=== PATIENT | male | born 1950 | race Caucasian/White ===

== ENCOUNTER → 2016-08-09 | Outpatient (CLI) | payer MEDICARE ==
[2016-08-09 08:07] LABS: CH 32.7; CHCM 33.3; HCT 48.6 % (39.0-53.0); HDW 2.63; HGB 16.1 gm/dL (13.0-17.5); MCH 32.7 pg (25.0-35.0); MCHC 33.1 g/dL (31.0-37.0); MCV 98.7 fL (80.0-100.0); Mean Platelet Volume 6.6; RBC 4.93 m/uL (4.30-5.90); RDW 12.7 % (11.5-15.5); WBC 7.4 k/uL (3.8-10.6)
[2016-08-09 08:24] LABS: Appearance,Urine Clear (Clear); Bacteria,Urine Rare /hpf; Bilirubin,Urine Negative (Negative); Glucose,Urine (UA) Negative (Negative); Ketones,Urine Negative (Negative); Leukocyte Esterase,Urine Trace (Negative); Mucus,Urine Occasional /hpf; Nitrite,Urine Negative (Negative); PH, Urine 5.5 (5.0-8.0); Particle Count 3104; Protein,Urine Negative (Negative); Specific Gravity,Urine 1.019 (1.001-1.035); Squamous Epithelial Cell,Urine <1 /hpf (0-4); UA Billing (MACRO vs. MICRO) MICRO; Urobilinogen,Urine <2.0 mg/dL (<2.0); WBC,Urine 3 /hpf (0-5)
[2016-08-09 10:49] LABS: ALT 36 U/L (21-72); AST 21 U/L (17-59); Alkaline Phosphatase 56 U/L (38-126); Anion Gap 9 mmol/L; Blood Urea Nitrogen 16 mg/dL (9-20); Calcium 9.2 mg/dL (8.4-10.2); Carbon Dioxide 27 mmol/L (22-30); Chloride 106 mmol/L (98-107); Cholesterol 172 mg/dL (<200); Glucose 99 mg/dL (74-99); HDL Cholesterol 65 mg/dL (40-60); Non-African American GFR(MDRD) >60 (>60 ml/min/1.73 sqM); Sodium 142 mmol/L (137-145); Total Bilirubin 0.5 mg/dL (0.2-1.3); Total Protein 6.8 g/dL (6.3-8.2); Triglycerides 92 mg/dL (<150)
[2016-08-09 11:27] LABS: Potassium 4.4 mmol/L (3.5-5.1)
== END | disposition home or self-care (01) ==
LOC: LABWHC1 07:17
PROVIDERS: ATTEND Internal Medicine
DX: I11.9 Hypertensive heart disease without heart failure (principal); E78.2 Mixed hyperlipidemia; K21.0 Gastro-esophageal reflux disease with esophagitis; N40.0 Benign prostatic hyperplasia without lower urinary tract symptoms
CPT/HCPCS: 84439; 80061; 80053; 84443; 85027; 82272; 81001; 36415; G0103

== ENCOUNTER → 2016-11-16 | Outpatient (CLI) | payer MEDICARE | END | disposition home or self-care (01) | LOC: LABWHC1 11:20 | PROVIDERS: ATTEND Internal Medicine | DX: E03.9 Hypothyroidism, unspecified (principal) | CPT/HCPCS: 36415; 84439; 84443 ==

== ENCOUNTER → 2017-03-16 | Outpatient (CLI) | payer MEDICARE ==
[2017-03-16 08:28] LABS: CH 34.1; HCT 47.2 % (39.0-53.0); HDW 2.47; HGB 16.7 gm/dL (13.0-17.5); MCH 34.7 pg (25.0-35.0); MCHC 35.4 g/dL (31.0-37.0); MCV 98.1 fL (80.0-100.0); Mean Platelet Volume 7.1; RBC 4.81 m/uL (4.30-5.90); RDW 13.5 % (11.5-15.5)
--- NOTE | 2017-03-16 08:40 | XR ---
Lumbosacral spine HISTORY: Low back pain, M 55.5 5 views of the lumbosacral spine No comparisons There is a slight spinal curvature. There is no spondylolysis or spondylolisthesis. Multilevel spondy losis is present. Sclerosis present in the posterior elements. Lumbar vertebral bodies show preserved height. Bone mineralization is reduced. Loss of disc height suspected L5-S1, L3-4. IMPRESSION: Osteopenia, degenerative disc disease, facet arthropathy. Lumbar MRI may be of benefit.
[2017-03-16 08:44] LABS: Appearance,Urine Clear (Clear); Bilirubin,Urine Negative (Negative); Glucose,Urine (UA) Negative (Negative); Ketones,Urine Negative (Negative); Leukocyte Esterase,Urine Negative (Negative); Nitrite,Urine Negative (Negative); PH, Urine 5.5 (5.0-8.0); Protein,Urine Negative (Negative); Specific Gravity,Urine 1.017 (1.001-1.035); UA Billing (MACRO vs. MICRO) CHEM; Urobilinogen,Urine <2.0 mg/dL (<2.0)
[2017-03-16 08:47] LABS: ALT 33 U/L (21-72); AST 20 U/L (17-59); Alkaline Phosphatase 58 U/L (38-126); Anion Gap 9 mmol/L; Blood Urea Nitrogen 13 mg/dL (9-20); Calcium 9.4 mg/dL (8.4-10.2); Carbon Dioxide 24 mmol/L (22-30); Chloride 107 mmol/L (98-107); Glucose 96 mg/dL (74-99); Non-African American GFR(MDRD) >60 (>60 ml/min/1.73 sqM); Potassium 4.7 mmol/L (3.5-5.1); Sodium 140 mmol/L (137-145); Total Bilirubin 0.7 mg/dL (0.2-1.3); Total Protein 6.9 g/dL (6.3-8.2)
--- NOTE | 2017-03-16 11:57 | US ---
EXAMINATION TYPE: US abdomen complete DATE OF EXAM: 03/16/2017 COMPARISON: NONE CLINICAL HISTORY: R10.11 ABD PAIN RLQ. EXAM MEASUREMENTS: Liver Length: 15.4 cm Gallbladder Wall: 0.2 cm CBD: 0.3 cm Spleen: 10.9 cm Right Kidney: 12.5 x 6.1 x 6.3 cm Left Kidney: 11.4 x 7.0 x 6.0 cm Pancreas: wnl Liver: homogeneous Gallbladder: No stones seen Evidence for sonographic Nolan's sign: no CBD: wnl Spleen: wnl Right Kidney: No hydronephrosis or masses seen Left Kidney: No hydronephrosis or masses seen Upper IVC: wnl Abd Aorta: Proximal and distal aorta wnl; mid aorta obscured by gas Cortical medullary differentiation is maintained within the kidneys, there is no pathologic calcifica tion bilaterally. There is no ascites. IMPRESSION: There are some limitations the exam. No abnormalities evident.
== END | disposition home or self-care (01) ==
LOC: RADUSWWP 08:05
PROVIDERS: ATTEND Internal Medicine
DX: R10.11 Right upper quadrant pain (principal); R10.31 Right lower quadrant pain; M51.36 Other intervertebral disc degeneration, lumbar region; M46.96 Unspecified inflammatory spondylopathy, lumbar region; M85.88 Other specified disorders of bone density and structure, other site
CPT/HCPCS: 72110; 76700; 80053; 81003; 85027

== ENCOUNTER → 2017-04-03 | Outpatient (CLI) | payer MEDICARE ==
--- NOTE | 2017-04-03 08:24 | MR ---
EXAMINATION TYPE: MR lumbar spine wo con DATE OF EXAM: 04/03/2017 COMPARISON: Abdominal ultrasound dated 03/16/2017. HISTORY: Low back pain for 6 to 8 months radiating into the right flank. TECHNIQUE: Multiplanar, multisequence images of the lumbar spine were acquired. The exam is limited secondary to patient motion. Bone marrow signal is unremarkable other than a T1/T2 hyperintense vertebral body hemangioma at L2. V ertebral bodies maintain normal height and alignment. L1-L2: Normal disc appearance without desiccation. No herniation, protrusion or disc bulging. No ca nal stenosis is present. Foramina are patent bilaterally. L2-L3: Normal disc appearance without desiccation. No herniation, protrusion or disc bulging. No ca nal stenosis is present. Foramina are patent bilaterally. L3-L4: Small broad-based disc bulge is seen creating mild neural foraminal narrowing bilaterally. Lig amentum flavum buckling and facet arthropathy are seen without spinal canal stenosis. L4-L5: Small broad-based disc bulge is seen creating mild neural foraminal narrowing bilaterally. Lig amentum flavum buckling and facet arthropathy are seen without spinal canal stenosis. L5-S1: Disc desiccation is present with a small broad-based disc bulge. However, there is no spinal c anal stenosis or neural foraminal narrowing seen. Perineural cysts are incidentally noted on the right at S1 and S2. On T1 images only there is a quest ionable exophytic right lower pole renal lesion. This may relate to motion artifact as no lesion was seen on the prior ultrasound of 03/16/2017. IMPRESSION: 1. Limited exam due to patient motion. Questionable right inferior pole renal lesion seen only on T1 images may be artifact as no prior lesion was seen on ultrasound of 03/16/2017. If there is clinical co ncern CT abdomen and pelvis could be performed for further evaluation. 2. No focal disc herniation or spinal canal stenosis. 3. Multilevel mild degenerative disc disease from L3 through S1 resulting in mild bilateral neural fo raminal narrowing at L3-L5.
== END | disposition home or self-care (01) ==
LOC: RADMRIMAIN 06:31
PROVIDERS: ATTEND Internal Medicine
DX: M99.73 Connective tissue and disc stenosis of intervertebral foramina of lumbar region (principal); M51.37 Other intervertebral disc degeneration, lumbosacral region
CPT/HCPCS: 72148

== ENCOUNTER → 2017-09-14 | Outpatient (CLI) | payer MEDICARE ==
[2017-09-14 07:54] LABS: HCT 45.3 % (39.0-53.0); HGB 14.8 gm/dL (13.0-17.5); MCH 30.9 pg (25.0-35.0); MCHC 32.6 g/dL (31.0-37.0); MCV 94.9 fL (80.0-100.0); Mean Platelet Volume 6.9; Platelet Count 217 k/uL (150-450); RBC 4.77 m/uL (4.30-5.90); RDW 12.7 % (11.5-15.5); WBC 7.4 k/uL (3.8-10.6)
[2017-09-14 08:15] LABS: Calcium 9.5 mg/dL (8.4-10.2); Potassium 4.5 mmol/L (3.5-5.1); Total Bilirubin 0.7 mg/dL (0.2-1.3); Total Protein 6.8 g/dL (6.3-8.2)
--- NOTE | 2017-09-14 08:35 | XR ---
EXAMINATION TYPE: XR chest 2V DATE OF EXAM: 09/14/2017 COMPARISON: Prior chest x-ray 11/10/2015 HISTORY: R05, I 11.9 TECHNIQUE: Frontal and lateral views of the chest are obtained. FINDINGS: There is no focal air space opacity, pleural effusion, or pneumothorax seen. The cardiac silhouette size is within normal limits. The osseous structures are intact. IMPRESSION: No acute cardiopulmonary process.
== END | disposition home or self-care (01) ==
LOC: LABWHC1 07:07
PROVIDERS: ATTEND Internal Medicine
DX: R05 Cough (principal); I11.9 Hypertensive heart disease without heart failure
CPT/HCPCS: 36415; 71046; 80053; 85027

== ENCOUNTER → 2017-11-08 | Outpatient (CLI) | payer MEDICARE ==
--- NOTE | 2017-11-08 09:15 | CT ---
EXAMINATION TYPE: CT abdomen wo/w con DATE OF EXAM: 11/08/2017 COMPARISON: MRI 04/03/2017 lumbar spine HISTORY: Patient complains of bilateral upper quadrant pain. CT DLP: 2045.3 mGycm Automated exposure control for dose reduction was used. TECHNIQUE: Helical acquisition of images was performed from the lung bases through the top of iliac crest to include entire abdomen. CONTRAST: Performed with Oral Contrast and without and with IV Contrast, patient injected with 100 mL of Isovue 300. FINDINGS: LUNG BASES: Linear changes at both lung bases are noted. Correlate for atelectasis. LIVER/GB: No significant abnormality is appreciated. PANCREAS: No significant abnormality is seen. SPLEEN: No significant abnormality is seen. ADRENALS: No significant abnormality is seen. KIDNEYS: There are 2 hypodense lesions involving the right kidney both measuring approximately 1 cm a nd measuring approximately 11 Hounsfield units compatible simple cysts. No hydronephrosis or nephroli thiasis. BOWEL: Bowel gas pattern nonspecific. No diagnostic evidence of obstruction as visualized. Gastric w all appears slightly thickened but this is felt to be most likely related to incomplete distention. LYMPH NODES: No significant abnormality is seen. Subcentimeter lymph node is seen in the peripancrea tic region anterior to the IVC. OSSEOUS STRUCTURES: Hypertrophic and degenerative change of the spine noted. FREE AIR: No free air is visualized. OTHER: Aorta of normal caliber. IMPRESSION: 1. There are two right-sided renal lesions are seen measuring less than 15 Hounsfield units compatibl e with simple cyst. 2. Correlate for constipation with retained fecal debris throughout the colon. Mild thickening of the gastric wall is felt to be most likely related to incomplete distention rather than gastritis correl ate clinically.
== END | disposition home or self-care (01) ==
LOC: RADCTMAIN 07:56
PROVIDERS: ATTEND Internal Medicine
DX: K56.41 Fecal impaction (principal); N28.9 Disorder of kidney and ureter, unspecified; R19.09 Other intra-abdominal and pelvic swelling, mass and lump
CPT/HCPCS: 82565; 84520; 74170; 36415; Q9967

== ENCOUNTER → 2017-12-11 | Outpatient (CLI) | payer MEDICARE ==
[2017-12-11 07:51] LABS: T4, Free (Free Thyroxine) 0.81 ng/dL (0.78-2.19)
[2017-12-11 11:52] LABS: Prostate Specific Antigen 2.97 ng/mL (0.00-4.00)
== END | disposition home or self-care (01) ==
LOC: LABWHC1 06:46
PROVIDERS: ATTEND Internal Medicine
DX: E78.2 Mixed hyperlipidemia (principal); E03.9 Hypothyroidism, unspecified; N40.0 Benign prostatic hyperplasia without lower urinary tract symptoms
CPT/HCPCS: 36415; 80061; 84153; 84439; 84443

== ENCOUNTER → 2018-02-28 | Outpatient (CLI) | payer MEDICARE ==
[2018-02-28 07:44] LABS: HCT 47.6 % (39.0-53.0); HGB 15.3 gm/dL (13.0-17.5); MCH 31.8 pg (25.0-35.0); MCHC 32.2 g/dL (31.0-37.0); MCV 98.7 fL (80.0-100.0); Mean Platelet Volume 6.4; Platelet Count 239 k/uL (150-450); RBC 4.82 m/uL (4.30-5.90); RDW 12.8 % (11.5-15.5); WBC 7.8 k/uL (3.8-10.6)
[2018-02-28 07:55] LABS: Albumin 3.8 g/dL (3.5-5.0); Calcium 9.3 mg/dL (8.4-10.2); Potassium 4.5 mmol/L (3.5-5.1); Total Bilirubin 0.9 mg/dL (0.2-1.3); Total Protein 6.6 g/dL (6.3-8.2)
[2018-02-28 08:06] LABS: T4, Free (Free Thyroxine) 0.75 ng/dL (0.78-2.19)
== END | disposition home or self-care (01) ==
LOC: LABWHC1 07:03
PROVIDERS: ATTEND Internal Medicine
DX: Z00.00 Encounter for general adult medical examination without abnormal findings (principal); E11.9 Type 2 diabetes mellitus without complications; E03.9 Hypothyroidism, unspecified; K21.0 Gastro-esophageal reflux disease with esophagitis
CPT/HCPCS: 36415; 80053; 80061; 82272; 84439; 84443; 85027

== ENCOUNTER 2018-08-28 09:19 | Emergency (ER) | payer MEDICARE ==
[2018-08-28 09:25] VITALS: RESP 18
[2018-08-28] MEDS ORDERED: SODIUM CHLORIDE 0.9% 1,000 ML IV STA ×2 (09:42)
--- NOTE | 2018-08-28 09:47 | ED ---
Weakness HPI <Mich Mckinley - Last Filed: 08/28/18 11:19> - General Source: patient, RN notes reviewed, old records reviewed Mode of arrival: ambulatory Limitations: no limitations <Maribel Welch - Last Filed: 08/28/18 11:30> - General Chief complaint: Weakness Stated complaint: WEAKNESS RT ARM AND LEG Time Seen by Provider: 08/28/18 09:30 - History of Present Illness Initial comments: Patient is a 68-year-old male who presents emergency room today with right- sided arm and leg weakness.Patient reports symptoms started 3-4 days ago. Patient reports that he noticed yesterday while trying to mash potatoes that his right hand independent distributor strength was decreased compared to his left. Patient states that he has a history of hypertension. Patient reports he also takes daily aspirin. (Maribel Welch) - Related Data Home Medications Medication Instructions Recorded Confirmed Levothyroxine Sodium [Synthroid] 25 mcg PO QAM 11/10/15 08/28/18 Aspirin EC [Ecotrin Low Dose] 81 mg PO DAILY 08/28/18 08/28/18 Atenolol 25 mg PO DAILY 08/28/18 08/28/18 Enalapril [Vasotec] 10 mg PO BID 08/28/18 08/28/18 Allergies Allergy/AdvReac Type Severity Reaction Status Date / Time No Known Allergies Allergy Verified 08/28/18 09:45 Review of Systems ROS Other: All systems not noted in ROS Statement are negative. <Mich Mckinley - Last Filed: 08/28/18 11:19> ROS Other: All systems not noted in ROS Statement are negative. <Maribel Welch - Last Filed: 08/28/18 11:30> ROS Statement: Those systems with pertinent positive or pertinent negative responses have been documented in the HPI. Past Medical History Past Medical History: Hypertension, Thyroid Disorder History of Any Multi-Drug Resistant Organisms: None Reported Past Surgical History: No Surgical Hx Reported Past Psychological History: No Psychological Hx Reported Smoking Status: Current some day smoker Past Alcohol Use History: Daily Past Drug Use History: None Reported <Maribel Welch - Last Filed: 08/28/18 11:30> General Exam <Mich Mckinley - Last Filed: 08/28/18 11:19> Limitations: no limitations General appearance: alert, in no apparent distress Head exam: Present: atraumatic, normocephalic, normal inspection Eye exam: Present: normal appearance, PERRL, EOMI. Absent: scleral icterus, conjunctival injection, periorbital swelling ENT exam: Present: normal exam, mucous membranes moist Neck exam: Present: normal inspection. Absent: tenderness, meningismus, lymphadenopathy Respiratory exam: Present: normal lung sounds bilaterally Cardiovascular Exam: Present: regular rate, normal rhythm, normal heart sounds. Absent: systolic murmur, diastolic murmur, rubs, gallop, clicks GI/Abdominal exam: Present: soft, normal bowel sounds. Absent: distended, tenderness, guarding, rebound, rigid Extremities exam: Present: normal inspection, full ROM, normal capillary refill. Absent: tenderness, pedal edema, joint swelling, calf tenderness Back exam: Present: normal inspection Neurological exam: Present: alert, oriented X3, CN II-XII intact, normal gait Expanded Patient oriented to: Present: person, place, time Speech: Present: fluid speech Cranial nerves: EOM's Intact: Normal, Facial Sensation: Normal Cerebellar function: Finger to Nose: Normal Upper motor neuron: Pronator Drift: Normal Sensory exam: Upper Extremity Light Touch: Normal, UE 2 Point Discrimination: Normal Motor strength exam: RUE: 4, LUE: 5, RLE: 4, LLE: 5 Eye Response: (4) open spontaneously Motor Response: (6) obeys commands Verbal Response: (5) oriented [place] Total: 15 Psychiatric exam: Present: normal affect, normal mood Skin exam: Present: warm, dry, intact, normal color. Absent: rash <Maribel Welch - Last Filed: 08/28/18 11:30> - General Exam Comments Initial Comments: Patient is a 68-year-old male. Alert and oriented 3. Patient appears in no significant distress. (Maribel Welch) Course <Mich Mckinley - Last Filed: 08/28/18 11:19> <Maribel Welch - Last Filed: 08/28/18 11:30> Vital Signs 08/28/18 08/28/18 09:19 11:06 Temperature 98.5 F Pulse Rate 60 58 L Respiratory 18 18 Rate Blood Pressure 177/112 154/90 O2 Sat by Pulse 98 97 Oximetry - Reevaluation(s) Reevaluation #1: 08/28/18 11:20 PERRY supervision: I proceeded [id number] evaluation patient did discuss the complaints of findings with him and his . Patient has had some articulation problems with speech or last several days along with right upper extremity difficulties he is dominant right-handed. He also states over last month or month and a half he's had some difficulty with moving his right foot and leg which he normally does. No trauma reported. Lab work was reviewed and is essentially within normal limits CAT scan however does show evidence of vasogenic edema surrounding 2 masslike left frontal lesion suspicious for underlying intra-axial neoplasms. I did discuss this with the patient and his . After discussion transferred to [facility] is to be accomplished. I did discuss the case with Dr. Ibrahim in the emergency department at [facility] was agreed to set the patient transfer. Patient is awake alert oriented 3 he does demonstrate the above deficits. He will receive IV Decadron to be transferred with head of the bed up at 30. (Mich Mckinley) EKG Findings - EKG Comments: EKG Findings:: EKG performed at 950 shows sinus bradycardia, otherwise normal EKG. Crit 57 bpm. Pulse 1-60 ms. QS ration 80 ms QT QTc is 408/397 ms. <Maribel Welch - Last Filed: 08/28/18 11:30> Medical Decision Making - Lab Data Result diagrams: 08/28/18 09:54 08/28/18 09:54 <Mich Mckinley - Last Filed: 08/28/18 11:19> - Lab Data Result diagrams: 08/28/18 09:54 08/28/18 09:54 - Radiology Data Radiology results: report reviewed <Maribel Welch - Last Filed: 08/28/18 11:30> - Medical Decision Making Patient is a 68-year-old male presents return today with complaints of right- sided hand and leg weakness been progressive for the past 3 days. He has no other neurological deficits. There is notable decrease in independent distributor strength with the right hand compared to the left. He is [id number]. CT of the brain is completed and stroke workup was completed. The CT does show evidence of edema masslike effect over the left parietal lobe. Patient case also with Dr. Mckinley. Lab work was otherwise unremarkable. EKG shows no significant changes. Patient was informed of the possibility of neoplasm cause the symptoms and CT findings. Recommended transfer to tertiary care facility. Discussed with Dr. Mckinley who discussed the case with Сергей Cavanaugh. (Maribel Welch) - Lab Data Lab Results 08/28/18 08/28/18 08/28/18 Range/Units 09:54 09:54 09:54 WBC 6.9 (3.8-10.6) k/uL RBC 4.92 (4.30-5.90) m/uL Hgb 15.9 (13.0-17.5) gm/dL Hct 47.7 (39.0-53.0) % MCV 97.0 (80.0-100.0) fL MCH 32.4 (25.0-35.0) pg MCHC 33.4 (31.0-37.0) g/dL RDW 12.6 (11.5-15.5) % Plt Count 254 (150-450) k/uL Neutrophils % 67 % Lymphocytes % 22 % Monocytes % 6 % Eosinophils % 3 % Basophils % 1 % Neutrophils # 4.6 (1.3-7.7) k/uL Lymphocytes # 1.5 (1.0-4.8) k/uL Monocytes # 0.4 (0-1.0) k/uL Eosinophils # 0.2 (0-0.7) k/uL Basophils # 0.1 (0-0.2) k/uL PT (9.0-12.0) sec INR (<1.2) APTT (22.0-30.0) sec Sodium 139 (137-145) mmol/L Potassium 4.5 (3.5-5.1) mmol/L Chloride 107 (98-107) mmol/L Carbon Dioxide 23 (22-30) mmol/L Anion Gap 9 mmol/L BUN 17 (9-20) mg/dL Creatinine 1.04 (0.66-1.25) mg/dL Est GFR (CKD-EPI)AfAm 86 (>60 ml/min/1.73 sqM) Est GFR (CKD-EPI)NonAf 74 (>60 ml/min/1.73 sqM) Glucose 100 H (74-99) mg/dL Plasma Lactic Acid Adarsh (0.7-2.0) mmol/L Calcium 9.8 (8.4-10.2) mg/dL Magnesium 1.9 (1.6-2.3) mg/dL Total Bilirubin 1.0 (0.2-1.3) mg/dL AST 23 (17-59) U/L ALT 32 (21-72) U/L Alkaline Phosphatase 61 (38-126) U/L Total Creatine Kinase 87 (55-170) U/L CK-MB (CK-2) 1.1 (0.0-2.4) ng/mL CK-MB (CK-2) Rel Index 1.3 Troponin I <0.012 (0.000-0.034) ng/mL Total Protein 7.0 (6.3-8.2) g/dL Albumin 4.1 (3.5-5.0) g/dL 08/28/18 08/28/18 Range/Units 09:54 09:54 WBC (3.8-10.6) k/uL RBC (4.30-5.90) m/uL Hgb (13.0-17.5) gm/dL Hct (39.0-53.0) % MCV (80.0-100.0) fL MCH (25.0-35.0) pg MCHC (31.0-37.0) g/dL RDW (11.5-15.5) % Plt Count (150-450) k/uL Neutrophils % % Lymphocytes % % Monocytes % % Eosinophils % % Basophils % % Neutrophils # (1.3-7.7) k/uL Lymphocytes # (1.0-4.8) k/uL Monocytes # (0-1.0) k/uL Eosinophils # (0-0.7) k/uL Basophils # (0-0.2) k/uL PT 11.1 (9.0-12.0) sec INR 1.0 (<1.2) APTT 26.4 (22.0-30.0) sec Sodium (137-145) mmol/L Potassium (3.5-5.1) mmol/L Chloride (98-107) mmol/L Carbon Dioxide (22-30) mmol/L Anion Gap mmol/L BUN (9-20) mg/dL Creatinine (0.66-1.25) mg/dL Est GFR (CKD-EPI)AfAm (>60 ml/min/1.73 sqM) Est GFR (CKD-EPI)NonAf (>60 ml/min/1.73 sqM) Glucose (74-99) mg/dL Plasma Lactic Acid Adarsh 0.9 (0.7-2.0) mmol/L Calcium (8.4-10.2) mg/dL Magnesium (1.6-2.3) mg/dL Total Bilirubin (0.2-1.3) mg/dL AST (17-59) U/L ALT (21-72) U/L Alkaline Phosphatase (38-126) U/L Total Creatine Kinase (55-170) U/L CK-MB (CK-2) (0.0-2.4) ng/mL CK-MB (CK-2) Rel Index Troponin I (0.000-0.034) ng/mL Total Protein (6.3-8.2) g/dL Albumin (3.5-5.0) g/dL - Radiology Data Vasogenic edema surrounding to masslike left frontal lesion suspicious for underlying intra-axial neoplasms creating a focal left rightward midline shift of 5 mm. Impression of the corpus callosum and impression upon the left lateral ventricle without concurrent obstruction. CT brain with contrast is recommended for more definitive characterization noted. Chest x-rays negative for any acute process. (Maribel Welch) Disposition Is patient prescribed a controlled substance at d/c from ED?: No - Out of Hospital Transfer - Req. Specs Out of Hospital Transfer - Requested Specifics: Other Emergency Center <Mich Mckinley - Last Filed: 08/28/18 11:19> Is patient prescribed a controlled substance at d/c from ED?: No Time of Disposition: 11:30 <Maribel Welch - Last Filed: 08/28/18 11:30> Clinical Impression: Neoplasm of brain causing mass effect on adjacent structures Disposition: OTHER INSTITUTION NOT DEFINED Condition: Serious Referrals: Trent Haque MD [Primary Care Provider] - 1-2 days
[2018-08-28 10:14] LABS: Basophils # (A) 0.1 k/uL (0-0.2); Basophils % (A) 1 %; Eosinophils # (A) 0.2 k/uL (0-0.7); Eosinophils % (A) 3 %; HCT 47.7 % (39.0-53.0); HGB 15.9 gm/dL (13.0-17.5); Lymphocytes # (A) 1.5 k/uL (1.0-4.8); Lymphocytes % (A) 22 %; MCH 32.4 pg (25.0-35.0); MCHC 33.4 g/dL (31.0-37.0); Mean Platelet Volume 6.5; Monocytes # (A) 0.4 k/uL (0-1.0); Monocytes % (A) 6 %; Neutrophils # (A) 4.6 k/uL (1.3-7.7); Neutrophils % (A) 67 %; Platelet Count 254 k/uL (150-450); RBC 4.92 m/uL (4.30-5.90); RDW 12.6 % (11.5-15.5); WBC 6.9 k/uL (3.8-10.6)
[2018-08-28 10:23] LABS: Partial Thromboplastin Time 26.4 sec (22.0-30.0); Prothrombin Time 11.1 sec (9.0-12.0)
--- NOTE | 2018-08-28 10:24 | CT ---
EXAMINATION TYPE: CT brain wo con DATE OF EXAM: 08/28/2018 COMPARISON: None HISTORY: Rt arm numbness and weakness CT DLP: 1086.4 mGycm Automated exposure control for dose reduction was used. FINDINGS: There is is a mucosal retention cysts of the right maxillary sinus measuring 2.2 x 1.6 cm. There is m ild rightward nasal septal deviation and scant mucosal thickening of the left maxillary sinus. There is moderate mucosal thickening of the ethmoid sinuses. Retained secretions or a small Thornwaldt cyst is seen in the posterior nasopharynx. The sphenoid sinuses and frontal sinuses as well as the mastoi d air cells are well aerated. Calvarium appears intact. Minimal atherosclerosis is seen of the intrac ranial vasculature. There is masslike edema in the posterior left frontal lobe at 2 locations the first measuring 1.2 x 1 .1 cm and a second measuring approximately 2.5 x 2.7 cm with surrounding edema creating focal 5 mm le ft to right midline shift/subfalcine herniation. Findings appear as vasogenic edema with suspicion fo r underlying masses. On coronal series 202 image 41 there is mass effect upon the left lateral ventri elliot and corpus callosum. No acute intracranial hemorrhage is seen. Orbits appear symmetric and unremarkable. Calvarium appears intact. IMPRESSION: VASOGENIC EDEMA SURROUNDING 2 MASSLIKE LEFT FRONTAL LESIONS SUSPICIOUS FOR UNDERLYING INTRA-AXIAL ANTONIO PLASMS CREATING FOCAL LEFT RIGHTWARD MIDLINE SHIFT OF 5 MM, IMPRESSION ON THE CORPUS CALLOSUM, AND IM PRESSION UPON THE LEFT LATERAL VENTRICLE WITHOUT CURRENT OBSTRUCTION. CT BRAIN WITH CONTRAST IS RECOM MENDED FOR MORE DEFINITIVE CHARACTERIZATION.
[2018-08-28 10:28] LABS: Albumin 4.1 g/dL (3.5-5.0); Calcium 9.8 mg/dL (8.4-10.2); Magnesium 1.9 mg/dL (1.6-2.3); Potassium 4.5 mmol/L (3.5-5.1)
[2018-08-28 10:40] LABS: Creatine Kinase 87 U/L (55-170)
[2018-08-28 10:53] LABS: Creatine Kinase MB 1.1 ng/mL (0.0-2.4); Troponin I <0.012 ng/mL (0.000-0.034)
--- NOTE | 2018-08-28 10:58 | XR ---
EXAMINATION TYPE: XR chest 2V DATE OF EXAM: 08/28/2018 COMPARISON: NONE TECHNIQUE: PA and lateral views submitted. HISTORY: Right-sided weakness FINDINGS: The lungs are clear and there is no pneumothorax, pleural effusion, or focal pneumonia. Biapical pl eural thickening. No overt failure. Hypertrophic and degenerative change of the spine. Mild hyperinfl ation. IMPRESSION: 1. No acute process.
[2018-08-28] MEDS ORDERED: DEXAMETHASONE SOD PHOSPHATE 10 MG/ML 1 ML VIAL IV STA (11:19)
[2018-08-28 12:01] VITALS: BP 149/87; PULSE 75; TEMP 98
== END 2018-08-28 12:00 | disposition short-term general hospital (02) ==
LOC: EC 09:19
DX: D49.6 Neoplasm of unspecified behavior of brain (principal); I10 Essential (primary) hypertension; E07.9 Disorder of thyroid, unspecified; F17.200 Nicotine dependence, unspecified, uncomplicated; Z79.82 Long term (current) use of aspirin; Z79.890 Hormone replacement therapy; Z79.899 Other long term (current) drug therapy
CPT/HCPCS: 36415; 93005; 80053; 82550; 82553; 83605; 83735; 84484; 85025; 85610; 85730; 71046; 70450; 99285; 96374; 96361 ×2; J1100

== ENCOUNTER → 2018-10-15 | Outpatient (CLI) | payer MEDICARE ==
--- NOTE | 2018-10-15 22:39 | MR ---
EXAMINATION TYPE: MR brain wo/w con DATE OF EXAM: 10/15/2018 COMPARISON: CT brain August 28, 2018 HISTORY: Follow up to brain tumor resection 09-04-18, glioblastoma TECHNIQUE: Multiplanar, multisequence images of the brain and brainstem is performed without and with IV contras t, utilizing 10 mL intravenous Gadavist . FINDINGS: Diffusion weighted images demonstrate no evidence of a recent infarct or other diffusion ab normality. There is ventricular and sulcal prominence consistent with mild age-related cerebral atro phy. There is extra-axial CSF prominence over the left side measuring up to 15 mm in thickness of T1 hypointensity and T2 hyperintensity favoring postsurgical hygroma as there is artifact from left-side d high frontal parietal craniotomy noted. The craniocervical junction appears within normal limits. Post contrast images demonstrate persisten t irregular rim-enhancing posterior left frontal mass extending superiorly to the top of the brain pa renchyma measuring 3.6 cm transversely by 3.2 cm AP diameter axial image 23 by roughly 5.1 cm cranioc audal diameter on image 21. This lesion shows surrounding T2 hyperintensity. There is some local mass effect with midline shift and there are axial image 21. Some surgical resection is noted superiorly near the craniotomy changes. Area is strongly suspicious for residual neoplasm. Pre-MRI scans not lin ilable for direct comparison at this institution. No new enhancing masses are present. The dural venous sinuses appear patent. The visualized sinuses are clear and the globes are intact. 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 Correl ation with presurgical MRI advised to assess interval change since surgery.
== END | disposition home or self-care (01) ==
LOC: RADMRIMAIN 12:13
PROVIDERS: ATTEND Nurse Practitioner Family
DX: C71.9 Malignant neoplasm of brain, unspecified (principal); Z98.890 Other specified postprocedural states
CPT/HCPCS: 70553; A9585

== ENCOUNTER 2018-10-22 11:02 | Emergency (ER) | payer MEDICARE ==
[2018-10-22] MEDS ORDERED: SODIUM CHLORIDE 0.9% 500 ML 500 ML IV STA (11:07)
[2018-10-22] MEDS ORDERED: SODIUM CHLORIDE 0.9% 1,000 ML IV STA (11:07)
[2018-10-22] MEDS ORDERED: levETIRAcetam IV 1,000 MG in SALINE 1 100ML.BAG IVPB STA (11:07)
[2018-10-22 11:13] VITALS: TEMP 98.5
[2018-10-22 11:30] LABS: Glucose,Whole Blood 96 mg/dL (75-99)
--- NOTE | 2018-10-22 11:45 | ED ---
General Adult HPI - General Chief complaint: Recheck/Abnormal Lab/Rx Stated complaint: Seizure Time Seen by Provider: 10/22/18 11:02 Source: patient, family, EMS, RN notes reviewed Mode of arrival: EMS Limitations: no limitations - History of Present Illness Initial comments: This is a 68-year-old male with a history of surgery in August of this year for a glioblastoma who has been receiving chemotherapy and radiation therapy who was doing his usual routine this morning when he started developing right-sided tremors of the upper or lower extremities. He did have surgery for the glioblastoma on September 04. 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 He also apparently had an MRI done this past week. He was scheduled for radiation therapy today. No recent change in medications no reports of fevers chills nausea vomiting sweats. The patient was brought in by paramedics he was given 2.5 mg of first set which did temporarily stop the tremor activity patient glucose at the time was 90. - Related Data Home Medications Medication Instructions Recorded Confirmed Levothyroxine Sodium [Synthroid] 25 mcg PO DAILY@0800 11/10/15 10/22/18 Carvedilol [Coreg] 6.25 mg PO BID@0800,1900 10/22/18 10/22/18 Dexamethasone [Hexadrol] 4 mg PO BID@0800,1400 10/22/18 10/22/18 Lacosamide [Vimpat] 200 mg PO BID 10/22/18 10/22/18 OXcarbazepine [Trileptal] 300 - 600 mg PO BID 10/22/18 10/22/18 Pantoprazole Sodium [Protonix] 40 mg PO DAILY@0800 10/22/18 10/22/18 Polyethylene Glycol 3350 [Miralax] 17 gm PO DAILY PRN 10/22/18 10/22/18 Sulfamethoxazole/Trimethoprim 1 tab PO MOWEFR 10/22/18 10/22/18 [Bactrim DS 800-160 mg] levETIRAcetam [Keppra] 1,000 mg PO BID@0800,2000 10/22/18 10/22/18 Allergies Allergy/AdvReac Type Severity Reaction Status Date / Time No Known Allergies Allergy Verified 10/22/18 12:31 Review of Systems ROS Statement: Those systems with pertinent positive or pertinent negative responses have been documented in the HPI. ROS Other: All systems not noted in ROS Statement are negative. Past Medical History Past Medical History: Hypertension, Thyroid Disorder Additional Past Medical History / Comment(s): brain tumor History of Any Multi-Drug Resistant Organisms: None Reported Past Surgical History: No Surgical Hx Reported Additional Past Surgical History / Comment(s): brain tumor removal Past Psychological History: No Psychological Hx Reported Smoking Status: Current some day smoker Past Alcohol Use History: Daily Past Drug Use History: None Reported General Exam - General Exam Comments Initial Comments: This a well-developed well-nourished awake male who does demonstrate slightly slurred speech also is actively demonstrating tremors to the right upper lower extremity. Limitations: no limitations General appearance: alert, in distress ENT exam: Present: mucous membranes dry Neck exam: Present: normal inspection, full ROM, other (No stridor JVD or bruits). Absent: tenderness, meningismus, lymphadenopathy Extremities exam: Present: normal capillary refill, other (Right hemiplegia with tremors noted to the right upper and lower extremities). Absent: normal in spection, full ROM, tenderness Neurological exam: Present: alert, oriented X3, CN II-XII intact, motor sensory deficit (As noted above) Psychiatric exam: Present: normal affect, normal mood Skin exam: Present: warm, dry, intact, normal color. Absent: rash Course Vital Signs 10/22/18 10/22/18 10/22/18 11:06 11:21 12:33 Temperature 98.5 F Pulse Rate 89 84 67 Respiratory 28 H 18 16 Rate Blood Pressure 101/35 106/75 106/75 O2 Sat by Pulse 97 99 Oximetry - Reevaluation(s) Reevaluation #1: 10/22/18 11:46 Patient did respond to 1 mg of Ativan. The tremors have ceased. Reevaluation #2: 10/22/18 11:48 nuclear monitoring technician: nuclear monitoring technician ordered to rule out dysrhythmia due to the patient's presentation with apparent seizure-like activity. Heart rate was 80 sinus rhythm no atrial or ventricular ectopy noted. Reevaluation #3: 10/22/18 13:01 Reevaluation patient again reveals he is awake alert somewhat lethargic likely secondary to the benzodiazepine he received. No further episodes of tremor/seizure activity noted. EKG Findings - EKG Results: EKG: interpreted by SHEILA, sinus rhythm (Neuro sinus rhythm a 77 appear interval 176 QRS duration 80 QT since QTC 370/14 possible left atrial enlargement no acute ST-T wave changes) Medical Decision Making - Medical Decision Making I did discuss the findings with the patient and his . I also discussed the case with Dr. Garcia from radiation oncology also with Dr. Bey from radiology. Patient is stable at this time he will be transferred to [facility] for evaluation of the above. The patient was given 1 g of Keppra IV in addition to the medication previously mentioned. Patient is awake alert oriented 3 his vital signs are stable at this time he was given 10 mg of Decadron IV push. He will be transferred by EMS. I did discuss the case with Dr. Rainey who has agreed to set the patient transfer. - Lab Data Result diagrams: 10/22/18 11:19 10/22/18 11:19 Lab Results 10/22/18 10/22/18 10/22/18 Range/Units 11:19 11:19 11:19 WBC 10.1 (3.8-10.6) k/uL RBC 4.37 (4.30-5.90) m/uL Hgb 14.2 (13.0-17.5) gm/dL Hct 41.7 (39.0-53.0) % MCV 95.5 (80.0-100.0) fL MCH 32.6 (25.0-35.0) pg MCHC 34.1 (31.0-37.0) g/dL RDW 13.8 (11.5-15.5) % Plt Count 176 (150-450) k/uL Neutrophils % 70 % Lymphocytes % 22 % Monocytes % 6 % Eosinophils % 1 % Basophils % 0 % Neutrophils # 7.0 (1.3-7.7) k/uL Lymphocytes # 2.2 (1.0-4.8) k/uL Monocytes # 0.6 (0-1.0) k/uL Eosinophils # 0.1 (0-0.7) k/uL Basophils # 0.0 (0-0.2) k/uL Sodium 133 L (137-145) mmol/L Potassium 4.4 (3.5-5.1) mmol/L Chloride 102 (98-107) mmol/L Carbon Dioxide 25 (22-30) mmol/L Anion Gap 6 mmol/L BUN 23 H (9-20) mg/dL Creatinine 0.79 (0.66-1.25) mg/dL Est GFR (CKD-EPI)AfAm >90 (>60 ml/min/1.73 sqM) Est GFR (CKD-EPI)NonAf >90 (>60 ml/min/1.73 sqM) Glucose 79 (74-99) mg/dL POC Glucose (mg/dL) (75-99) mg/dL POC Glu Assistant ID Calcium 9.0 (8.4-10.2) mg/dL Magnesium 2.0 (1.6-2.3) mg/dL Total Bilirubin 0.6 (0.2-1.3) mg/dL AST 27 (17-59) U/L ALT 52 (21-72) U/L Alkaline Phosphatase 58 (38-126) U/L Total Creatine Kinase 39 L (55-170) U/L CK-MB (CK-2) 2.2 (0.0-2.4) ng/mL CK-MB (CK-2) Rel Index 5.6 Total Protein 5.6 L (6.3-8.2) g/dL Albumin 3.3 L (3.5-5.0) g/dL 10/22/18 Range/Units 11:28 WBC (3.8-10.6) k/uL RBC (4.30-5.90) m/uL Hgb (13.0-17.5) gm/dL Hct (39.0-53.0) % MCV (80.0-100.0) fL MCH (25.0-35.0) pg MCHC (31.0-37.0) g/dL RDW (11.5-15.5) % Plt Count (150-450) k/uL Neutrophils % % Lymphocytes % % Monocytes % % Eosinophils % % Basophils % % Neutrophils # (1.3-7.7) k/uL Lymphocytes # (1.0-4.8) k/uL Monocytes # (0-1.0) k/uL Eosinophils # (0-0.7) k/uL Basophils # (0-0.2) k/uL Sodium (137-145) mmol/L Potassium (3.5-5.1) mmol/L Chloride (98-107) mmol/L Carbon Dioxide (22-30) mmol/L Anion Gap mmol/L BUN (9-20) mg/dL Creatinine (0.66-1.25) mg/dL Est GFR (CKD-EPI)AfAm (>60 ml/min/1.73 sqM) Est GFR (CKD-EPI)NonAf (>60 ml/min/1.73 sqM) Glucose (74-99) mg/dL POC Glucose (mg/dL) 96 (75-99) mg/dL POC Glu Assistant ID Anna Vazquez Calcium (8.4-10.2) mg/dL Magnesium (1.6-2.3) mg/dL Total Bilirubin (0.2-1.3) mg/dL AST (17-59) U/L ALT (21-72) U/L Alkaline Phosphatase (38-126) U/L Total Creatine Kinase (55-170) U/L CK-MB (CK-2) (0.0-2.4) ng/mL CK-MB (CK-2) Rel Index Total Protein (6.3-8.2) g/dL Albumin (3.5-5.0) g/dL - Radiology Data Radiology results: report reviewed (I did review the imaging and report x-ray shows evidence of right basilar atelectasis or infiltrate mild central venous congestion not excluded. CAT scan however shows concerning evidence of recurrence of the glioblastoma multi-forming with progressive left to right some falsely herniation also evidence of left subdural hematoma measuring 8 mm evidence that is chronic. Please see complete report I did discuss this with Dr. Bey), image reviewed Critical Care Time Critical Care Time: Yes Critical Care Time: 35 mg of critical care time which includes initial presentation with history physical labs x-rays bedside with the patient during the initial evaluation treatment for refractory seizure activity. Also reevaluation the patient to responsive therapy. Discussion with radiation oncology and radiology as well as the receiving physician at [facility]. Review of old charting that was available. Documentation of the above. Also discussed with paramedics were transporting the patient. Disposition Clinical Impression: Seizure, Glioblastoma multiforme, Dehydration, Subdural hematoma Disposition: OTHER INSTITUTION NOT DEFINED Condition: Fair Referrals: Trent Haque MD [Primary Care Provider] - 1-2 days - Out of Hospital Transfer - Req. Specs Out of Hospital Transfer - Requested Specifics: Other Emergency Center
[2018-10-22 11:49] LABS: Basophils % (A) 0 %; Eosinophils # (A) 0.1 k/uL (0-0.7); Eosinophils % (A) 1 %; HCT 41.7 % (39.0-53.0); HGB 14.2 gm/dL (13.0-17.5); Lymphocytes # (A) 2.2 k/uL (1.0-4.8); Lymphocytes % (A) 22 %; MCH 32.6 pg (25.0-35.0); MCHC 34.1 g/dL (31.0-37.0); MCV 95.5 fL (80.0-100.0); Mean Platelet Volume 6.5; Monocytes # (A) 0.6 k/uL (0-1.0); Monocytes % (A) 6 %; Neutrophils % (A) 70 %; Platelet Count 176 k/uL (150-450); RBC 4.37 m/uL (4.30-5.90); RDW 13.8 % (11.5-15.5); WBC 10.1 k/uL (3.8-10.6)
[2018-10-22 11:56] LABS: ALT 52 U/L (21-72); AST 27 U/L (17-59); Albumin 3.3 g/dL (3.5-5.0); Alkaline Phosphatase 58 U/L (38-126); Anion Gap 6 mmol/L; Blood Urea Nitrogen 23 mg/dL (9-20); Carbon Dioxide 25 mmol/L (22-30); Chloride 102 mmol/L (98-107); Glucose 79 mg/dL (74-99); Potassium 4.4 mmol/L (3.5-5.1); Sodium 133 mmol/L (137-145); Total Bilirubin 0.6 mg/dL (0.2-1.3); Total Protein 5.6 g/dL (6.3-8.2)
--- NOTE | 2018-10-22 12:16 | XR ---
EXAMINATION TYPE: XR chest 1V portable DATE OF EXAM: 10/22/2018 COMPARISON: 08/28/2018 HISTORY: pain TECHNIQUE: Single frontal view of the chest is obtained. FINDINGS: There is subsegmental consolidation right lung base. Heart is stable. No pneumothorax. No sizable pleural effusion. Interstitium mildly prominent. IMPRESSION: Right basilar atelectasis or infiltrate. Mild central venous congestion not excluded cor relate clinically.
[2018-10-22 12:21] LABS: Creatine Kinase MB 2.2 ng/mL (0.0-2.4)
--- NOTE | 2018-10-22 12:39 | CT ---
EXAMINATION TYPE: CT brain wo con DATE OF EXAM: 10/22/2018 COMPARISON: 08/28/2018 and MRI dated 10/15/2018. HISTORY: seizure CT DLP: 1134.4 mGycm Automated exposure control for dose reduction was used. FINDINGS: In the previous resection cavity of the known glioblastoma multiform a there is concern for recurrenc e as there is an ill-defined approximately 2.6 cm rounded area that appears bilobed, contiguous with an approximately 2.6 cm rounded area within an area of left frontal encephalomalacia and vasogenic ed constantine. This results in left rightward midline shift of 8 mm. Additionally there is a CSF attenuated chr onic subdural hematoma measuring 8 mm in greatest thickness with effacement of the sulci peripherally . Left frontal craniotomy defect. There is effacement of the anterior horn of the left lateral ventricle and ventricular body. No gross dilatation of the right ventricle. Peripheral sulci prominence on the right relates to age-related a trophy similar to the prior. Dependent posterior right maxillary sinus. Remaining paranasal sinuses a nd mastoid air cells are well aerated. IMPRESSION: FINDINGS CONCERNING FOR RECURRENCE OF THE KNOWN PREVIOUSLY RESECTED LEFT FRONTAL GLIOBLASTOMA MULTIFO RME WITH PROGRESSIVE LEFT TO RIGHT SUBFALCINE HERNIATION. CONTRAST ENHANCED EXAMINATION COULD FURTHER ASSESS THESE FINDINGS. 2. LEFT SUBDURAL HEMATOMA MEASURING 8 MM IN GREATEST THICKNESS ALTHOUGH THIS WAS NOT PRESENT ON THE P RIOR OF 08/28/2018 THIS IS CSF ATTENUATED AND CHRONIC. Findings were communicated with the ordering ER physician Dr. Mckinley at 12:36 PM on 10/22/2018. Given this patient's CVA symptoms leftward to rightward midline shift can result in ISACC infarct, which is possible given the blurring of the vaughn-white mendoza er junction of the superior left frontal lobe.
[2018-10-22] MEDS ORDERED: DEXAMETHASONE SOD PHOSPHATE 10 MG/ML 1 ML VIAL IV STA (12:41)
[2018-10-22 13:53] VITALS: BP 127/75; PULSE 73; RESP 18
== END 2018-10-22 14:00 | disposition short-term general hospital (02) ==
LOC: EC 11:02
DX: C71.9 Malignant neoplasm of brain, unspecified (principal); I62.00 Nontraumatic subdural hemorrhage, unspecified; E86.0 Dehydration; R56.9 Unspecified convulsions; G81.91 Hemiplegia, unspecified affecting right dominant side; I10 Essential (primary) hypertension; E07.9 Disorder of thyroid, unspecified; F17.200 Nicotine dependence, unspecified, uncomplicated; Z79.02 Long term (current) use of antithrombotics/antiplatelets; Z79.890 Hormone replacement therapy; Z79.899 Other long term (current) drug therapy
CPT/HCPCS: 36415; 80053; 82550; 82553; 83735; 85025; 71045; 70450; 99291; 96374; 96375; 96361 ×2; J1100; J1953

== ENCOUNTER → 2018-11-11 | Outpatient (CLI) | payer MEDICARE ==
--- NOTE | 2018-11-11 15:18 | US ---
EXAMINATION TYPE: US venous doppler duplex LE RT DATE OF EXAM: 11/11/2018 2:55 PM COMPARISON: NONE CLINICAL HISTORY: RLE Swelling R22.41. right leg swelling SIDE PERFORMED: right TECHNIQUE: The lower extremity deep venous system is examined utilizing real time linear array sonog quinn with graded compression, doppler sonography and color-flow sonography. VESSELS IMAGED: External Iliac Vein (EIV) Common Femoral Vein Deep Femoral Vein Greater Saphenous Vein * Femoral Vein Popliteal Vein Small Saphenous Vein * Proximal Calf Veins (* superficial vessels) Right Leg: Appears negative for DVT, internal echoes, and no blood flow within non-compressible smal l saphenous vein. *impression given to Dr Swanson at [facility] IMPRESSION: Superficial thrombophlebitis without evidence for DVT at this time.
== END | disposition home or self-care (01) ==
LOC: RADUSWWP 14:24
PROVIDERS: ATTEND Radiology Radiation Oncology
DX: I80.01 Phlebitis and thrombophlebitis of superficial vessels of right lower extremity (principal)

== ENCOUNTER → 2018-12-13 | Outpatient (CLI) | payer MEDICARE ==
--- NOTE | 2018-12-13 14:13 | MR ---
EXAMINATION TYPE: MR brain wo/w con DATE OF EXAM: 12/13/2018 COMPARISON: 10/15/2018 MRI brain and 10/22/2018 HISTORY: Frontal lobe neoplasm TECHNIQUE: Multiplanar, multisequence images of the brain and brainstem is performed without and with IV contras t, utilizing 10 mL intravenous Gadavist . FINDINGS: Diffusion-weighted imaging demonstrates peripheral restricted diffusion of the aggressive n eoplasm at the resection cavity in the left posterior frontal lobe resulting in left to right midline shift/subfalcine herniation as seen on the prior CT of 10/22/2018. Midline shift measures approximate ly 4 mm and previously measured 8 mm on the prior exam of 10/22/2018. There is recurrence of the previ ously resected left posterior frontal glioblastoma multiforme that is heterogenous and intensity with peripheral rim enhancement and extensive surrounding vasogenic edema currently measuring 3.7 cm in a nterior posterior dimension, 4.3 cm in transverse dimension, and 5.5 cm in craniocaudal dimension. Th is previously measured 3.6 x 3.2 x 5.1 cm on the prior of 10/15/2018. Overlying craniotomy defect is pr esent. Slight dural thickening may be postsurgical. There is mass effect on the left lateral ventricl e within the body and frontal horn. No other abnormal suspicious enhancement is seen within the brain . There is redemonstration of fluid attenuated chronic subdural hygromas, left greater than right samuel suring 8 mm on the left and 6 mm on the right. There is a subacute component on the left as is a slig htly hyperdense in comparison to the right on FLAIR. There is scant fluid in the right mastoid air cells and small amount of fluid in the right maxillary sinus. Remaining paranasal sinuses and left mastoid air cells are well aerated. Globes are symmetric and unremarkable. Prominent subarachnoid fluid is seen surrounding the optic nerves. This is typicall y an incidental finding. IMPRESSION: 1. Marked progression of vasogenic edema surrounding the recurrent left glioblastoma multiforme with persistent left to right midline shift/subfalcine herniation currently measuring 4 mm and measuring u p to 8 mm on the prior CT. No additional lesions are seen. 2. Acute on chronic left subdural hematoma and small right subdural hygroma, although similar in thic kness to the prior.
== END | disposition home or self-care (01) ==
LOC: RADMRIMAIN 11:37
PROVIDERS: ATTEND Radiology Radiation Oncology
DX: C71.1 Malignant neoplasm of frontal lobe (principal); F17.210 Nicotine dependence, cigarettes, uncomplicated
CPT/HCPCS: 70553; A9585

== ENCOUNTER 2019-01-31 10:23 | Emergency (ER) | payer MEDICAID, MEDICARE ==
[2019-01-31 10:36] VITALS: PULSE 68; RESP 17; TEMP 97.7
[2019-01-31] MEDS ORDERED: SODIUM CHLORIDE 0.9% 500 ML 500 ML IV ONE (11:04)
[2019-01-31] MEDS ORDERED: ONDANSETRON 4 MG/2 ML VIAL IVP STA (11:09)
--- NOTE | 2019-01-31 11:41 | ED ---
General Adult HPI - General Chief complaint: Altered Mental Status Stated complaint: Altered mental Time Seen by Provider: 01/31/19 10:25 Source: patient, EMS, RN notes reviewed Mode of arrival: EMS Limitations: altered mental status, physical limitation - History of Present Illness Initial comments: This is a 69-year-old male who was diagnosed with glioblastoma in August after that he said surgery as well as chemo and radiation. Patient comes in today because he was unresponsive for his and 2 occasions the first lasting 10 minutes now second about 5 minutes. states he did not have any seizure- like activity. states he appeared to be awake and staring forward and never completely collapsing but was not responsive. Patient states she did not notice any new weakness or slurred speech or facial droop. Patient has not been recently ill. Patient does not have any complaints himself. Patient denies any headache patient denies any chest pain difficulty breathing shortest breath per patient denies any abdominal pain. 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 - Related Data Home Medications Medication Instructions Recorded Confirmed Levothyroxine Sodium [Synthroid] 25 mcg PO DAILY@0800 11/10/15 01/31/19 Carvedilol [Coreg] 6.25 mg PO BID@0800,199910/22/18 01/31/19 Dexamethasone [Hexadrol] 4 mg PO BID@0800,199910/22/18 01/31/19 Pantoprazole Sodium [Protonix] 40 mg PO DAILY@0800 10/22/18 01/31/19 Polyethylene Glycol 3350 [Miralax] 17 gm PO DAILY PRN 10/22/18 01/31/19 levETIRAcetam [Keppra] 1,000 mg PO BID@0800,199910/22/18 01/31/19 Docusate [Colace] 100 mg PO BID@0800,199901/31/19 01/31/19 OXcarbazepine 600 mg PO BID 01/31/19 01/31/19 Allergies Allergy/AdvReac Type Severity Reaction Status Date / Time No Known Allergies Allergy Verified 01/31/19 11:10 Review of Systems ROS Statement: Those systems with pertinent positive or pertinent negative responses have been documented in the HPI. ROS Other: All systems not noted in ROS Statement are negative. Past Medical History Past Medical History: Hypertension, Thyroid Disorder Additional Past Medical History / Comment(s): brain tumor History of Any Multi-Drug Resistant Organisms: None Reported Past Surgical History: No Surgical Hx Reported Additional Past Surgical History / Comment(s): brain tumor removal Past Psychological History: No Psychological Hx Reported Smoking Status: Current some day smoker Past Alcohol Use History: Daily Past Drug Use History: None Reported General Exam - General Exam Comments Initial Comments: GENERAL: Patient is well-developed and well-nourished. Patient is nontoxic and well- hydrated and is in no acute distress. ENT: Neck is soft and supple. No significant lymphadenopathy is noted. Oropharynx is clear. Moist mucous membranes. Neck has full range of motion without eliciting any pain. EYES: The sclera were anicteric and conjunctiva were pink and moist. Extraocular movements were intact and pupils were equal round and reactive to light. Eyelids were unremarkable. PULMONARY: Unlabored respirations. Good breath sounds bilaterally. No audible rales rhonchi or wheezing was noted. CARDIOVASCULAR: There is a regular rate and rhythm without any murmurs gallops or rubs. ABDOMEN: Soft and nontender with normal bowel sounds. . SKIN: Skin is clear with no lesions or rashes and otherwise unremarkable. NEUROLOGIC: Patient is alert and oriented x3. Cranial nerves II through XII are grossly intact. Patient has complete paralysis of the right side. Normal speech, volume and content. Symmetrical smile. MUSCULOSKELETAL: Normal extremities with adequate strength and full range of motion. LYMPHATICS: No significant lymphadenopathy is noted PSYCHIATRIC: Normal psychiatric evaluation. Limitations: altered mental status, physical limitation Course Vital Signs 01/31/19 10:26 Temperature 97.7 F Pulse Rate 68 Respiratory 17 Rate Blood Pressure 105/77 O2 Sat by Pulse 94 L Oximetry Medical Decision Making - Medical Decision Making EKG shows sinus bradycardia 57 bpm FL interval 280 QRS is 92 QT interval 450 QTC is 438. Patient's has no ST segment elevation or depression. CT of the brain shows no change in the tumor or edema. Patient had no episodes while in the emergency department. is comfortable taking the patient home. Patient is slightly hyponatremic and she will follow- up early next week. Get repeat lab work. - Lab Data Result diagrams: 01/31/19 11:19 01/31/19 11:19 Lab Results 01/31/19 01/31/19 01/31/19 Range/Units 11:19 11:19 11:19 WBC 11.9 H (3.8-10.6) k/uL RBC 3.99 L (4.30-5.90) m/uL Hgb 12.6 L (13.0-17.5) gm/dL Hct 37.7 L (39.0-53.0) % MCV 94.5 (80.0-100.0) fL MCH 31.4 (25.0-35.0) pg MCHC 33.3 (31.0-37.0) g/dL RDW 15.9 H (11.5-15.5) % Plt Count 229 (150-450) k/uL Neutrophils % 87 % Lymphocytes % 5 % Monocytes % 6 % Eosinophils % 1 % Basophils % 0 % Neutrophils # 10.4 H (1.3-7.7) k/uL Lymphocytes # 0.6 L (1.0-4.8) k/uL Monocytes # 0.7 (0-1.0) k/uL Eosinophils # 0.1 (0-0.7) k/uL Basophils # 0.0 (0-0.2) k/uL Poikilocytosis Slight PT 10.4 (9.0-12.0) sec INR 1.0 (<1.2) APTT 20.1 L (22.0-30.0) sec Sodium 126 L (137-145) mmol/L Potassium 4.2 (3.5-5.1) mmol/L Chloride 94 L (98-107) mmol/L Carbon Dioxide 21 L (22-30) mmol/L Anion Gap 11 mmol/L BUN 16 (9-20) mg/dL Creatinine 0.54 L (0.66-1.25) mg/dL Est GFR (CKD-EPI)AfAm >90 (>60 ml/min/1.73 sqM) Est GFR (CKD-EPI)NonAf >90 (>60 ml/min/1.73 sqM) Glucose 120 H (74-99) mg/dL Calcium 9.2 (8.4-10.2) mg/dL Total Bilirubin 0.6 (0.2-1.3) mg/dL AST 17 (17-59) U/L ALT 14 L (21-72) U/L Alkaline Phosphatase 74 (38-126) U/L Troponin I (0.000-0.034) ng/mL Total Protein 6.1 L (6.3-8.2) g/dL Albumin 3.6 (3.5-5.0) g/dL Urine Color Urine Appearance (Clear) Urine pH (5.0-8.0) Ur Specific [place] (1.001-1.035) Urine Protein (Negative) Urine Glucose (UA) (Negative) Urine Ketones (Negative) Urine Blood (Negative) Urine Nitrite (Negative) Urine Bilirubin (Negative) Urine Urobilinogen (<2.0) mg/dL Ur Leukocyte Esterase (Negative) Urine Opiates Screen (NotDetected) Ur Oxycodone Screen (NotDetected) Urine Methadone Screen (NotDetected) Ur Propoxyphene Screen (NotDetected) Ur Barbiturates Screen (NotDetected) Carbamazepine ug/mL U Tricyclic Antidepress (NotDetected) Ur Phencyclidine Scrn (NotDetected) Ur Amphetamines Screen (NotDetected) U Methamphetamines Scrn (NotDetected) U Benzodiazepines Scrn (NotDetected) Urine Cocaine Screen (NotDetected) U Marijuana (THC) Screen (NotDetected) 01/31/19 01/31/19 01/31/19 Range/Units 11:19 12:43 14:57 WBC (3.8-10.6) k/uL RBC (4.30-5.90) m/uL Hgb (13.0-17.5) gm/dL Hct (39.0-53.0) % MCV (80.0-100.0) fL MCH (25.0-35.0) pg MCHC (31.0-37.0) g/dL RDW (11.5-15.5) % Plt Count (150-450) k/uL Neutrophils % % Lymphocytes % % Monocytes % % Eosinophils % % Basophils % % Neutrophils # (1.3-7.7) k/uL Lymphocytes # (1.0-4.8) k/uL Monocytes # (0-1.0) k/uL Eosinophils # (0-0.7) k/uL Basophils # (0-0.2) k/uL Poikilocytosis PT (9.0-12.0) sec INR (<1.2) APTT (22.0-30.0) sec Sodium (137-145) mmol/L Potassium (3.5-5.1) mmol/L Chloride (98-107) mmol/L Carbon Dioxide (22-30) mmol/L Anion Gap mmol/L BUN (9-20) mg/dL Creatinine (0.66-1.25) mg/dL Est GFR (CKD-EPI)AfAm (>60 ml/min/1.73 sqM) Est GFR (CKD-EPI)NonAf (>60 ml/min/1.73 sqM) Glucose (74-99) mg/dL Calcium (8.4-10.2) mg/dL Total Bilirubin (0.2-1.3) mg/dL AST (17-59) U/L ALT (21-72) U/L Alkaline Phosphatase (38-126) U/L Troponin I <0.012 (0.000-0.034) ng/mL Total Protein (6.3-8.2) g/dL Albumin (3.5-5.0) g/dL Urine Color Urine Appearance (Clear) Urine pH (5.0-8.0) Ur Specific [place] (1.001-1.035) Urine Protein (Negative) Urine Glucose (UA) (Negative) Urine Ketones (Negative) Urine Blood (Negative) Urine Nitrite (Negative) Urine Bilirubin (Negative) Urine Urobilinogen (<2.0) mg/dL Ur Leukocyte Esterase (Negative) Urine Opiates Screen Not Detected (NotDetected) Ur Oxycodone Screen Not Detected (NotDetected) Urine Methadone Screen Not Detected (NotDetected) Ur Propoxyphene Screen Not Detected (NotDetected) Ur Barbiturates Screen Not Detected (NotDetected) Carbamazepine <3.0 ug/mL U Tricyclic Antidepress Not Detected (NotDetected) Ur Phencyclidine Scrn Not Detected (NotDetected) Ur Amphetamines Screen Not Detected (NotDetected) U Methamphetamines Scrn Not Detected (NotDetected) U Benzodiazepines Scrn Not Detected (NotDetected) Urine Cocaine Screen Not Detected (NotDetected) U Marijuana (THC) Screen Not Detected (NotDetected) 01/31/19 Range/Units 14:57 WBC (3.8-10.6) k/uL RBC (4.30-5.90) m/uL Hgb (13.0-17.5) gm/dL Hct (39.0-53.0) % MCV (80.0-100.0) fL MCH (25.0-35.0) pg MCHC (31.0-37.0) g/dL RDW (11.5-15.5) % Plt Count (150-450) k/uL Neutrophils % % Lymphocytes % % Monocytes % % Eosinophils % % Basophils % % Neutrophils # (1.3-7.7) k/uL Lymphocytes # (1.0-4.8) k/uL Monocytes # (0-1.0) k/uL Eosinophils # (0-0.7) k/uL Basophils # (0-0.2) k/uL Poikilocytosis PT (9.0-12.0) sec INR (<1.2) APTT (22.0-30.0) sec Sodium (137-145) mmol/L Potassium (3.5-5.1) mmol/L Chloride (98-107) mmol/L Carbon Dioxide (22-30) mmol/L Anion Gap mmol/L BUN (9-20) mg/dL Creatinine (0.66-1.25) mg/dL Est GFR (CKD-EPI)AfAm (>60 ml/min/1.73 sqM) Est GFR (CKD-EPI)NonAf (>60 ml/min/1.73 sqM) Glucose (74-99) mg/dL Calcium (8.4-10.2) mg/dL Total Bilirubin (0.2-1.3) mg/dL AST (17-59) U/L ALT (21-72) U/L Alkaline Phosphatase (38-126) U/L Troponin I (0.000-0.034) ng/mL Total Protein (6.3-8.2) g/dL Albumin (3.5-5.0) g/dL Urine Color Yellow Urine Appearance Clear (Clear) Urine pH 6.0 (5.0-8.0) Ur Specific [place] 1.017 (1.001-1.035) Urine Protein Negative (Negative) Urine Glucose (UA) Negative (Negative) Urine Ketones Negative (Negative) Urine Blood Negative (Negative) Urine Nitrite Negative (Negative) Urine Bilirubin Negative (Negative) Urine Urobilinogen 2.0 (<2.0) mg/dL Ur Leukocyte Esterase Negative (Negative) Urine Opiates Screen (NotDetected) Ur Oxycodone Screen (NotDetected) Urine Methadone Screen (NotDetected) Ur Propoxyphene Screen (NotDetected) Ur Barbiturates Screen (NotDetected) Carbamazepine ug/mL U Tricyclic Antidepress (NotDetected) Ur Phencyclidine Scrn (NotDetected) Ur Amphetamines Screen (NotDetected) U Methamphetamines Scrn (NotDetected) U Benzodiazepines Scrn (NotDetected) Urine Cocaine Screen (NotDetected) U Marijuana (THC) Screen (NotDetected) Disposition Clinical Impression: Altered mental status, Hyponatremia Disposition: HOME SELF-CARE Instructions (If sedation given, give patient instructions): Altered Mental Status (ED), Hyponatremia (ED) Additional Instructions: Patient's sodium was 126 she is to follow-up for a repeat blood draw early next week Is patient prescribed a controlled substance at d/c from ED?: No Referrals: None,Stated [REFERRING] - 1-2 days Time of Disposition: 16:14
[2019-01-31 11:45] LABS: Basophils % (A) 0 %; Eosinophils # (A) 0.1 k/uL (0-0.7); Eosinophils % (A) 1 %; HCT 37.7 % (39.0-53.0); HGB 12.6 gm/dL (13.0-17.5); Lymphocytes # (A) 0.6 k/uL (1.0-4.8); Lymphocytes % (A) 5 %; MCH 31.4 pg (25.0-35.0); MCHC 33.3 g/dL (31.0-37.0); MCV 94.5 fL (80.0-100.0); Mean Platelet Volume 6.6; Monocytes # (A) 0.7 k/uL (0-1.0); Monocytes % (A) 6 %; Neutrophils # (A) 10.4 k/uL (1.3-7.7); Neutrophils % (A) 87 %; Platelet Count 229 k/uL (150-450); Poikilocytosis Slight; RBC 3.99 m/uL (4.30-5.90); RDW 15.9 % (11.5-15.5); WBC 11.9 k/uL (3.8-10.6)
[2019-01-31 11:51] LABS: ALT 14 U/L (21-72); AST 17 U/L (17-59); African American GFR (CKD) >90 (>60 ml/min/1.73 sqM); Albumin 3.6 g/dL (3.5-5.0); Alkaline Phosphatase 74 U/L (38-126); Anion Gap 11 mmol/L; Blood Urea Nitrogen 16 mg/dL (9-20); Calcium 9.2 mg/dL (8.4-10.2); Carbon Dioxide 21 mmol/L (22-30); Chloride 94 mmol/L (98-107); Glucose 120 mg/dL (74-99); Non-African American GFR(CKD) >90 (>60 ml/min/1.73 sqM); Potassium 4.2 mmol/L (3.5-5.1); Sodium 126 mmol/L (137-145); Total Bilirubin 0.6 mg/dL (0.2-1.3); Total Protein 6.1 g/dL (6.3-8.2)
[2019-01-31 12:02] LABS: Prothrombin Time 10.4 sec (9.0-12.0)
[2019-01-31 12:18] LABS: Partial Thromboplastin Time 20.1 sec (22.0-30.0)
--- NOTE | 2019-01-31 12:25 | CT ---
EXAMINATION TYPE: CT brain wo con DATE OF EXAM: 01/31/2019 COMPARISON: 10/22/2018 HISTORY: History of brain tumor removal, possible seizure CT DLP: 1099.[address] of the brain was performed. Changes of left-sided craniotomy redemonstrated. Within the high left frontal lobe there is a cystic mass identified measuring 2.7 x 2.5 x 2.4 cm felt to reflect recurrent the left-sided glioblastoma mu ltiforme with severe surrounding vasogenic edema. Midline shift from left to right of 4 mm with sub falcine herniation suspected. No additional lesions are identified. No evidence for intracranial hemorrhage. If symptoms persist consider MRI. IMPRESSION: 1. Left frontal lobe mass is felt to reflect a recurrent left-sided glioblastoma multiforme with rebeka re surrounding vasogenic edema as well as left to right midline shift of 4 mm and probable subfalcine herniation.
--- NOTE | 2019-01-31 12:55 | XR ---
EXAMINATION TYPE: XR chest 2V DATE OF EXAM: 01/31/2019 COMPARISON: 10/22/2018 HISTORY: Shortness of breath TECHNIQUE: Frontal and lateral views of the chest are obtained. FINDINGS: Scattered senescent parenchymal changes noted. Hyperinflation compatible with COPD. No evidence for infiltrate. No evidence for atelectasis. Heart size is stable. Mediastinal structures are stable and grossly unremarkable. No evidence for hilar prominence. Degenerative changes dorsal spine. IMPRESSION: 1. No evidence for acute pulmonary disease.
[2019-01-31 15:07] LABS: Appearance,Urine Clear (Clear); Bilirubin,Urine Negative (Negative); Blood,Urine Negative (Negative); Color,Urine Yellow; Glucose,Urine (UA) Negative (Negative); Ketones,Urine Negative (Negative); Leukocyte Esterase,Urine Negative (Negative); Nitrite,Urine Negative (Negative); Protein,Urine Negative (Negative); Specific Gravity,Urine 1.017 (1.001-1.035)
[2019-01-31 15:21] LABS: Amphetamine Screen,Urine Not Detected (NotDetected); Barbiturate Screen,Urine Not Detected (NotDetected); Benzodiazepines Screen,Urine Not Detected (NotDetected); Cocaine Screen,Urine Not Detected (NotDetected); Methadone Screen, Urine Not Detected (NotDetected); Opiate Screen,Urine Not Detected (NotDetected); Oxycodone Screen, Urine Not Detected (NotDetected); Phencyclidine Screen,Urine Not Detected (NotDetected); Tricyclic Antidepressant,Urine Not Detected (NotDetected); Urn Cannabinoid Scrn Not Detected (NotDetected)
[2019-01-31 16:27] VITALS: BP 110/72
== END 2019-01-31 16:35 | disposition home or self-care (01) ==
LOC: EC 10:23 → SUPCPDRO 10:23 → EC 16:35
DX: R41.82 Altered mental status, unspecified (principal); E87.1 Hypo-osmolality and hyponatremia; R00.1 Bradycardia, unspecified; I10 Essential (primary) hypertension; E07.9 Disorder of thyroid, unspecified; F17.200 Nicotine dependence, unspecified, uncomplicated; Z85.841 Personal history of malignant neoplasm of brain; Z79.890 Hormone replacement therapy; Z79.899 Other long term (current) drug therapy
CPT/HCPCS: 99285 ×2; 96374 ×2; 36415; 93005; 80156; 80053; 80177; 84484; 85025; 85610; 85730; 81003; 80306; 71046; 70450; J2405

== ENCOUNTER 2019-02-19 10:15 | Emergency (ER) | payer MEDICARE ==
[2019-02-19] MEDS ORDERED: SODIUM CHLORIDE 0.9% 1,000 ML IV STA (10:39)
[2019-02-19] MEDS ORDERED: DEXAMETHASONE SOD PHOSPHATE 10 MG/ML 1 ML VIAL IV STA (10:39)
--- NOTE | 2019-02-19 10:49 | ED ---
General Adult HPI - General Stated complaint: AMS Time Seen by Provider: 02/19/19 10:16 Source: family, EMS Mode of arrival: EMS Limitations: physical limitation - History of Present Illness Initial comments: Dictation was produced using [employer] dictation software. please excuse any grammatical, word or spelling errors. Chief Complaint: 69-year-old male with past medical history of glioblastoma multiforme presents with seizure. History of Present Illness: History obtained from EMS and . Patient is 69-year-old male is past medical history of glioblastoma multiforme which was diagnosed back in August of this year. Patient is currently hospice. Brought in by EMS. EMS reports that patient had a 20 minute long episode of seizure approximately 1 hour prior to arrival. Patient has frequent seizures. Patient has rapidly progressing disease with worsening neurologic function. He is at baseline unresponsive. He has flaccid paralysis to his right side of his body. Patient still able to follow some commands. is at bedside and reports that patient's will is to not be on life support. however is not sure whether she wants CPR, central lines, vasopressors or intubation. endorses that patient at bedside is his usual baseline. The ROS documented in this emergency department record has been reviewed and confirmed by me. Those systems with pertinent positive or negative responses have been documented in the HPI. All other systems are other negative and/or noncontributory. PHYSICAL EXAM: General Impression: Follows basic commands, no acute distress HEENT: Normocephalic atraumatic, pupils equal and reactive to light bilaterally Cardiovascular: Heart regular rate and rhythm, S1&S2 audible, no murmurs, rubs or gallops Chest: Lungs clear to auscultation bilaterally, no rhonchi, no wheeze, no rales Abdomen: Bowel sounds present, abdomen soft, non-tender, non-distended, no organomegaly Musculoskeletal: Pulses present and equal in all extremities, no peripheral edema Motor: no focal deficits noted Neurological: Flaccid paralysis of the right side of the body Skin: Intact with no visualized rashes ED course: 69-year-old male with progressive glioblastoma multiforme he presents after a seizure for 20 minutes. Patient has frequent seizures however usually not this long which is why EMS was called. Patient has worsening neurologic issues given his aggressive brain cancer. In-depth discussion was held with and we decided that patient is no code. EMS reports that patient's blood pressure was low upon initial evaluation.Hospice nurse Yael is at bedside had a long discussion with patient. They will make plans for at home phenobarbital when necessary seizures. Laboratory evaluation obtained leukocytosis of 14.0. This could be related to stress versus steroid administration. He is on daily Decadron. Coag panel unremarkable. Metabolic panel shows sodium 08/06 this is appears to be patient's baseline. Rest of metabolic panel is unremarkable. Urinalysis shows 12 white blood cells. Computed tomography scan of the brain was obtained showing worsening progression of slow cerebral vasogenic edema and increasing subfalcine herniation. Patient and family were notified of these results. The are understandable agreeable for discharge. He will be hospice. Patient's family is followed closely with hospice care. Patient and family is agreeable to discharge. Patient given prescription for antibiotics to treat UTI. Pending cultures. Family understands that patient has a terminal illness that is very aggressive. EKG interpretation: Ventricular rate 67, normal sinus rhythm,. Interval 166, QS 92, QTC 426. No SD prolongation, no QTC prolongation, no ST or T-wave changes noted. Overall, this EKG is unremarkable - Related Data Home Medications Medication Instructions Recorded Confirmed Levothyroxine Sodium [Synthroid] 25 mcg PO DAILY 11/10/15 02/19/19 Carvedilol [Coreg] 6.25 mg PO BID 10/22/18 02/19/19 Dexamethasone [Hexadrol] 4 mg PO BID 10/22/18 02/19/19 Pantoprazole Sodium [Protonix] 40 mg PO DAILY 10/22/18 02/19/19 Polyethylene Glycol 3350 [Miralax] 17 gm PO DAILY 10/22/18 02/19/19 levETIRAcetam [Keppra] 1,000 mg PO TID 10/22/18 02/19/19 Docusate [Colace] 100 mg PO BID 01/31/19 02/19/19 OXcarbazepine 600 mg PO TID 01/31/19 02/19/19 Ferrous Sulfate [Feosol] 325 mg PO DAILY 02/19/19 02/19/19 LORazepam [Ativan] 0.5 - 1 mg PO Q4H PRN 02/19/19 02/19/19 Previous Rx's Medication Instructions Recorded Cephalexin [Keflex] 500 mg PO Q6HR 5 Days #20 cap 02/19/19 Allergies Allergy/AdvReac Type Severity Reaction Status Date / Time No Known Allergies Allergy Verified 02/19/19 11:30 Review of Systems ROS Statement: Those systems with pertinent positive or pertinent negative responses have been documented in the HPI. ROS Other: All systems not noted in ROS Statement are negative. Past Medical History Past Medical History: Hypertension, Thyroid Disorder Additional Past Medical History / Comment(s): brain tumor History of Any Multi-Drug Resistant Organisms: None Reported Past Surgical History: No Surgical Hx Reported Additional Past Surgical History / Comment(s): brain tumor removal Past Psychological History: No Psychological Hx Reported Smoking Status: Former smoker Past Alcohol Use History: None Reported, Daily Past Drug Use History: None Reported General Exam Limitations: physical limitation Course Vital Signs 02/19/19 02/19/19 02/19/19 10:38 10:44 11:00 Temperature 98.0 F Pulse Rate 66 67 64 Respiratory 18 18 18 Rate Blood Pressure 81/67 88/73 95/66 O2 Sat by Pulse 95 92 L 92 L Oximetry 02/19/19 11:48 Temperature Pulse Rate 61 Respiratory 18 Rate Blood Pressure 101/76 O2 Sat by Pulse 91 L Oximetry Medical Decision Making - Lab Data Result diagrams: 02/19/19 11:05 02/19/19 11:05 Lab Results 02/19/19 02/19/19 02/19/19 Range/Units 11:05 11:05 11:05 WBC 14.0 H (3.8-10.6) k/uL RBC 4.14 L (4.30-5.90) m/uL Hgb 13.1 (13.0-17.5) gm/dL Hct 39.0 (39.0-53.0) % MCV 94.1 (80.0-100.0) fL MCH 31.6 (25.0-35.0) pg MCHC 33.6 (31.0-37.0) g/dL RDW 16.0 H (11.5-15.5) % Plt Count 216 (150-450) k/uL Neutrophils % 89 % Lymphocytes % 5 % Monocytes % 4 % Eosinophils % 1 % Basophils % 0 % Neutrophils # 12.5 H (1.3-7.7) k/uL Lymphocytes # 0.8 L (1.0-4.8) k/uL Monocytes # 0.5 (0-1.0) k/uL Eosinophils # 0.1 (0-0.7) k/uL Basophils # 0.0 (0-0.2) k/uL PT (9.0-12.0) sec INR (<1.2) Sodium 129 L (137-145) mmol/L Potassium 4.0 (3.5-5.1) mmol/L Chloride 96 L (98-107) mmol/L Carbon Dioxide 24 (22-30) mmol/L Anion Gap 9 mmol/L BUN 20 (9-20) mg/dL Creatinine 0.62 L (0.66-1.25) mg/dL Est GFR (CKD-EPI)AfAm >90 (>60 ml/min/1.73 sqM) Est GFR (CKD-EPI)NonAf >90 (>60 ml/min/1.73 sqM) Glucose 106 H (74-99) mg/dL Plasma Lactic Acid [place] 1.1 (0.7-2.0) mmol/L Calcium 9.1 (8.4-10.2) mg/dL Magnesium 2.0 (1.6-2.3) mg/dL Troponin I (0.000-0.034) ng/mL Urine Color Urine Appearance (Clear) Urine pH (5.0-8.0) Ur Specific [place] (1.001-1.035) Urine Protein (Negative) Urine Glucose (UA) (Negative) Urine Ketones (Negative) Urine Blood (Negative) Urine Nitrite (Negative) Urine Bilirubin (Negative) Urine Urobilinogen (<2.0) mg/dL Ur Leukocyte Esterase (Negative) Urine RBC (0-5) /hpf Urine WBC (0-5) /hpf Urine Bacteria (None) /hpf Urine Mucus (None) /hpf 02/19/19 02/19/19 02/19/19 Range/Units 11:05 11:05 11:57 WBC (3.8-10.6) k/uL RBC (4.30-5.90) m/uL Hgb (13.0-17.5) gm/dL Hct (39.0-53.0) % MCV (80.0-100.0) fL MCH (25.0-35.0) pg MCHC (31.0-37.0) g/dL RDW (11.5-15.5) % Plt Count (150-450) k/uL Neutrophils % % Lymphocytes % % Monocytes % % Eosinophils % % Basophils % % Neutrophils # (1.3-7.7) k/uL Lymphocytes # (1.0-4.8) k/uL Monocytes # (0-1.0) k/uL Eosinophils # (0-0.7) k/uL Basophils # (0-0.2) k/uL PT 11.1 (9.0-12.0) sec INR 1.0 (<1.2) Sodium (137-145) mmol/L Potassium (3.5-5.1) mmol/L Chloride (98-107) mmol/L Carbon Dioxide (22-30) mmol/L Anion Gap mmol/L BUN (9-20) mg/dL Creatinine (0.66-1.25) mg/dL Est GFR (CKD-EPI)AfAm (>60 ml/min/1.73 sqM) Est GFR (CKD-EPI)NonAf (>60 ml/min/1.73 sqM) Glucose (74-99) mg/dL Plasma Lactic Acid [place] (0.7-2.0) mmol/L Calcium (8.4-10.2) mg/dL Magnesium (1.6-2.3) mg/dL Troponin I <0.012 (0.000-0.034) ng/mL Urine Color Yellow Urine Appearance Cloudy (Clear) Urine pH 6.5 (5.0-8.0) Ur Specific [place] 1.020 (1.001-1.035) Urine Protein Negative (Negative) Urine Glucose (UA) Negative (Negative) Urine Ketones Negative (Negative) Urine Blood Negative (Negative) Urine Nitrite Negative (Negative) Urine Bilirubin Negative (Negative) Urine Urobilinogen 3.0 (<2.0) mg/dL Ur Leukocyte Esterase Moderate H (Negative) Urine RBC 1 (0-5) /hpf Urine WBC 12 H (0-5) /hpf Urine Bacteria Moderate H (None) /hpf Urine Mucus Rare H (None) /hpf Disposition Clinical Impression: Seizure, Glioblastoma multiforme, UTI (urinary tract infection) Disposition: HOME SELF-CARE Condition: Fair Instructions (If sedation given, give patient instructions): Recurrent Seizures in Adults (ED) Prescriptions: Cephalexin [Keflex] 500 mg PO Q6HR 5 Days #20 cap Is patient prescribed a controlled substance at d/c from ED?: No Referrals: Efrain Eisenberg DO [Primary Care Provider] - 1-2 days Time of Disposition: 12:38
[2019-02-19 10:58] VITALS: TEMP 98
[2019-02-19] MEDS ORDERED: LIDOCAINE URO-JET JELLY 2% 5 ML KIT URETHRAL ONE (11:15)
[2019-02-19 11:19] LABS: Basophils % (A) 0 %; Eosinophils # (A) 0.1 k/uL (0-0.7); Eosinophils % (A) 1 %; HGB 13.1 gm/dL (13.0-17.5); Lymphocytes # (A) 0.8 k/uL (1.0-4.8); Lymphocytes % (A) 5 %; MCH 31.6 pg (25.0-35.0); MCHC 33.6 g/dL (31.0-37.0); MCV 94.1 fL (80.0-100.0); Mean Platelet Volume 7.1; Monocytes # (A) 0.5 k/uL (0-1.0); Monocytes % (A) 4 %; Neutrophils # (A) 12.5 k/uL (1.3-7.7); Neutrophils % (A) 89 %; Platelet Count 216 k/uL (150-450); RBC 4.14 m/uL (4.30-5.90)
[2019-02-19 11:27] LABS: Prothrombin Time 11.1 sec (9.0-12.0)
[2019-02-19 11:32] LABS: African American GFR (CKD) >90 (>60 ml/min/1.73 sqM); Anion Gap 9 mmol/L; Blood Urea Nitrogen 20 mg/dL (9-20); Calcium 9.1 mg/dL (8.4-10.2); Carbon Dioxide 24 mmol/L (22-30); Chloride 96 mmol/L (98-107); Glucose 106 mg/dL (74-99); Sodium 129 mmol/L (137-145)
--- NOTE | 2019-02-19 11:49 | XR ---
EXAMINATION TYPE: XR chest 1V portable DATE OF EXAM: 02/19/2019 COMPARISON: 01/31/2019 HISTORY: Seizure TECHNIQUE: Single frontal view of the chest is obtained. FINDINGS: Subsegmental changes at both lung bases with reduced inspiration. Biapical pleural thicken ing. No overt failure. Heart size stable. Rotation limits the exam. IMPRESSION: Bibasilar infiltrate or atelectasis similar to the prior exam.
--- NOTE | 2019-02-19 11:59 | CT ---
EXAMINATION TYPE: CT brain wo con DATE OF EXAM: 02/19/2019 COMPARISON: CT dated 01/31/2019 HISTORY: seizure with history of seizures CT DLP: 1154.4 mGycm Automated exposure control for dose reduction was used. FINDINGS: There is interval worsening of the subfalcine herniation now measuring up to 1.1 cm with previous samuel surement of approximately 0.4 cm. There is also increase in size of the heterogeneous lesion centered within the left frontal lobe which now measures approximately 3.7 cm in AP dimension with previous m easurement of approximately 2.4 cm. There is persistent vasogenic edema seen in the left frontal lobe . The lesion extends into the body of the corpus callosum. There is low attenuation within the medial and anterior periventricular white matter of the right frontal lobe, which was present on previous e xam. Overall, the amount of vasogenic edema appears increased when compared to prior exam. Extra-axia l spaces are clear. No evidence of hydrocephalus. No cerebellar herniation. Mucosal polyp or retentio n cyst is seen in the posterior right maxillary sinus. Otherwise, the visualized paranasal sinuses an d mastoid air cells are clear. Globes are intact. Post surgical changes of left-sided craniotomy. IMPRESSION: REDEMONSTRATION OF LEFT FRONTAL LOBE MASS WITH WORSENING LEFT CEREBRAL VASOGENIC EDEMA AND INCREASING SUBFALCINE HERNIATION.
[2019-02-19 12:26] LABS: Appearance,Urine Cloudy (Clear); Bacteria,Urine Moderate /hpf; Bilirubin,Urine Negative (Negative); Blood,Urine Negative (Negative); Color,Urine Yellow; Glucose,Urine (UA) Negative (Negative); Ketones,Urine Negative (Negative); Leukocyte Esterase,Urine Moderate (Negative); Mucus,Urine Rare /hpf; Nitrite,Urine Negative (Negative); PH, Urine 6.5 (5.0-8.0); Protein,Urine Negative (Negative); RBC,Urine 1 /hpf (0-5); WBC,Urine 12 /hpf (0-5)
[2019-02-19 13:05] VITALS: BP 115/82; PULSE 67; RESP 19
== END 2019-02-19 13:05 | disposition home or self-care (01) ==
LOC: SUPCPDRO 10:15 → EC 10:15
DX: C71.9 Malignant neoplasm of brain, unspecified (principal); N39.0 Urinary tract infection, site not specified; D72.829 Elevated white blood cell count, unspecified; I10 Essential (primary) hypertension; E07.9 Disorder of thyroid, unspecified; Z87.891 Personal history of nicotine dependence; Z79.52 Long term (current) use of systemic steroids; Z79.890 Hormone replacement therapy; Z79.899 Other long term (current) drug therapy; Z98.890 Other specified postprocedural states; Z53.8 Procedure and treatment not carried out for other reasons
CPT/HCPCS: 36415; 70450; 71045; 80048; 81001; 83605; 83735; 84484; 85025; 85610; 87077; 87086; 87186; 93005; 96360; 96361; 99285